=== PATIENT | male | born 1970 | race Caucasian/White ===

== ENCOUNTER 2016-03-30 17:04 | Emergency (ER) | payer MEDICAID, OTHER ==
[2016-03-30 17:18] VITALS: BP 141/70; PULSE 74; RESP 18; TEMP 97.9; O2SAT 96
--- NOTE | 2016-03-30 18:14 | EDPHY ---
H & P Stated Complaint: BRUNNER, NECK PAIN, NAUSEA S/P FALL Time Seen by Provider: 03/30/16 18:13 - Personal History Current Tetanus/Diphtheria Vaccine: Yes Current Tetanus Diphtheria and Acellular Pertussis (TDAP): Yes - Medical/Surgical History Hx Asthma: No Hx Chronic Respiratory Disease: No Hx Diabetes: No Hx Cardiac Disease: No Hx Renal Disease: No Hx Cirrhosis: No Hx Alcoholism: No Hx HIV/AIDS: Yes Hx Splenectomy or Spleen Trauma: No Other PMH: pmh: HIV, ASTHMA/COPD, - Social History Smoking Status: Never smoked Constitutional: Initial Vital Signs Temperature (C) 36.6 C 03/30/16 17:15 Heart Rate 74 03/30/16 17:15 Respiratory Rate 18 03/30/16 17:15 Blood Pressure 141/70 H 03/30/16 17:15 O2 Sat (%) 96 03/30/16 17:15 O2 Delivery Mode Room Air Allergies/Adverse Reactions: Penicillins Allergy (Intermediate, Verified 05/02/10 16:54) efavirenz [From Sustiva] Allergy (Verified 09/06/10 10:37) Home Medications: Medication Instructions Recorded Emtricitabine/Tenofovir [Truvada 1 each PO 05/02/10 200 Mg-300 Mg Tablet] Ibuprofen [Motrin (*)] 600 mg PO Q6PRN PRN #20 tab 05/02/10 Medical Decision Making ED Course/Re-evaluation: CHIEF COMPLAINT: Head trauma. HISTORY OF PRESENT ILLNESS: This patient is a 45 year old male who presents to the Emergency Department complaining of head trauma secondary to a mechanical fall last night. He states that he was working at [employer] when he fell backwards, hitting his occipital scalp on the concrete floor. He is unsure if he lost consciousness; if he did, he states that it was only for a second or two. Today, he complains of residual headache localized to his occipital scalp with associated nausea and mild dizziness. He denies visual or sensory changes or any additional complaints. No pertinent medical history. REVIEW OF SYSTEMS: A 10 point review of systems was performed and is negative with the exception of the elements mentioned in the history of present illness. PHYSICAL EXAM: HR 74, BP 141/70, O2 Sat 96%, RR 18. Temp noted General Appearance: Alert, well hydrated, appropriate, and non-toxic appearing. Head: Atraumatic without scalp tenderness or obvious injury Eyes: Pupils equal, round, reactive to light and accommodation, EOMI, no trauma , no injection. Ears: Clear bilaterally, no perforation, normal landmarks Nose: Atraumatic, no rhinorrhea, clear. Throat: There is no erythema or exudates, no lesions, normal tonsils, mucus membranes moist. Neck: Supple, 2+ carotid upstroke, nontender, no lymphadenopathy. Respiratory: No retractions, no distress, no wheezes, and no accessory muscle use. Lungs are clear to auscultation bilaterally. Cardiovascular: Regular rate and rhythm, no murmurs, rubs, or gallops. Bilateral carotid, radial, dorsalis pedis, and posterior tibial pulses intact. Good capillary refill all extremities. Gastrointestinal: Abdomen is soft, nontender, non-distended, no masses, no rebound, no guarding, no peritoneal signs. Musculoskeletal: Normal active ROM of all extremities, atraumatic. Neurological: Alert, appropriate, and interactive. The patient has normal DTRs and non-focal cranial nerves, motor, sensory, and cerebellar exam. Skin: No rashes, good turgor, no nodules on palpation. Past medical history: Denies Past surgical history: Non-contributory Social history: Works at [employer]. DIAGNOSTICS/PROCEDURES/CRITICAL CARE TIME: Study: CT of the head Indication: Pain, trauma Results: CT scan of the head was obtained. The results of the study are: No acute process The study was read by the radiologist, Dr. Cayden Sandoval . I viewed the images myself on the PACS system. DIFFERENTIAL DIAGNOSIS: The differential diagnosis for the patient's head injury included but was not limited to concussion, skull fracture, intra-parenchymal contusion, subarachnoid , subdural and epidural hematoma. MEDICAL DECISION MAKING: This normally healthy 45 y/o male presents with head trauma yesterday secondary to a mechanical fall. He complains of headache, dizziness, and nausea persisting from the time of the injury to the present. Given his lack of certainty of loss of consciousness and his persistent neurological complaints, will proceed with CT of the head to rule out acute injury. Consent was obtained for this study. The patient will be given 4mg PO Zofran for nausea prior to the study. Post concussive syndrome - Data Points Medications Given: Discontinued Medications Ondansetron HCl (Zofran Odt) 4 mg PO EDNOW ONE Stop: 03/30/16 18:27 Last Admin: 03/30/16 18:33 Dose: 4 mg Departure - Departure Disposition: Home, Routine, Self-Care Clinical Impression: Post concussive syndrome Condition: Good Instructions: Post Concussion Syndrome (ED) Referrals: IN STATE,. [Primary Care Provider] - As per Instructions Dinorah Reyes MD [Medical Doctor] - As per Instructions Report Scribed for: Klaus Schaefer Report Scribed by: Kamryn Loja Date of Report: 03/30/16 Time of Report: 18:21
[2016-03-30] MEDS ORDERED: ONDANSETRON DISINTEGRATING 4 MG TAB PO ONE (18:26)
--- NOTE | 2016-03-30 18:52 | CT ---
CT Head Without Contrast, 632 p.m. History: Head injury last night, occipital trauma. Headache. Nausea.. Comparison: None Technique: Noncontrast images through the head. Soft tissue and bone window evaluation is performed. Dose reduction techniques were utilized. Findings: There is no evidence for hemorrhage, mass lesion, acute infarction, intracranial edema, hyd rocephalus or abnormal intracranial calcification. No subarachnoid blood is identified. There is no m idline shift. The ambient cistern is patent. Incidentally noted is a cavum septum pellucid. Bone wind ow evaluation reveals normally aerated paranasal and mastoid sinuses and both middle ears. There is c ircumferential mucosal thickening of the sphenoid sinus, moderate mucosal thickening of the anterior right ethmoid region, and focal mucosal thickening in the posterior aspect of the right nasal passage way in the region of the sphenoid nasal orifice, consistent with chronic sinus disease. There is no e vidence of pneumocephalus or a basilar skull fracture. Impression: Head CT within normal limits. Final concordant results called to Dr. Schaefer at 648 p.m. General information for patients regarding this examination can be found at [email or web address]. If you have questions or comments about this report, please contact me at [phone] (hospital) or [phone] (cell).
== END 2016-03-30 19:22 | disposition home or self-care (01) ==
DX: G44.319 Acute post-traumatic headache, not intractable (principal); F07.81 Postconcussional syndrome; J44.9 Chronic obstructive pulmonary disease, unspecified; B20 Human immunodeficiency virus [HIV] disease; W01.198A Fall on same level from slipping, tripping and stumbling with subsequent striking against other object, initial encounter